=== PATIENT | male | born 1955 | race Caucasian/White ===

== ENCOUNTER 2016-09-15 18:19 | Emergency (ER) | payer MEDICAID ==
[2016-09-15] MEDS ORDERED: LISINOPRIL 10 MG TAB PO ONE (22:15)
== END 2016-09-15 22:38 | disposition home or self-care (01) ==
LOC: ER 18:19
DX: I10 Essential (primary) hypertension (principal); Z76.0 Encounter for issue of repeat prescription; R07.2 Precordial pain
CPT/HCPCS: 36415; 71010; 80053; 82553; 83735; 83880; 84484; 85025; 93005